=== PATIENT | female | born 1950 | race Caucasian/White ===

== ENCOUNTER 2019-02-18 17:09 | Emergency (ER) | payer MEDICARE ==
[2019-02-18 17:32] VITALS: BP 121/71
--- NOTE | 2019-02-18 17:48 | UC ---
Respiratory Complaint HPI - HPI Summary HPI Summary: started feeling sick 5 days ago with URI symps. cough and fatigue got worse for 2 days and now slowly getting better. Usint OTC cold and cough meds with some relief describes dry cough which is becoming looser over past day, fatigue and L ear discomfort (since yesterday). No fever.chills - History of Current Complaint Chief Complaint: UCRespiratory Stated Complaint: COUGH Time Seen by Provider: 02/18/19 17:29 Hx Obtained From: Patient Onset/Duration: Gradual Onset Timing: Constant Pain Intensity: 0 Character: Cough: Nonproductive Aggravating Factors: Nothing Alleviating Factors: OTC Meds Associated Signs And Symptoms: Positive: URI, Nasal Congestion. Negative: Dyspnea, Fever, Chills, Wheezing, Hemoptysis, Dizziness, Hoarseness - Allergies/Home Medications Allergies/Adverse Reactions: Allergies Allergy/AdvReac Type Severity Reaction Status Date / Time LILIES Allergy WATERY EYES Uncoded 02/18/19 17:34 Home Medications: Home Medications Guaifen/Dextromethorphan/PE [Tgt Cough/Cold Adult] 1 liq PO Q12HR PRN 02/18/19 [ History Confirmed 02/18/19] PMH/Surg Hx/FS Hx/Imm Hx Previously Healthy: Yes - Surgical History Surgical History: Yes Surgery Procedure, Year, and Place: ORAL SURGERY, OFFICE. CYSTOSCOPY- 2013 - Family History Known Family History: Positive: Non-Contributory - Social History Occupation: Retired Lives: With Family Alcohol Use: Rare Alcohol Amount: 1 PER MONTH Substance Use Type: None Smoking Status (MU): Never Smoked Tobacco Have You Smoked in the Last Year: No Review of Systems All Other Systems Reviewed And Are Negative: Yes Constitutional: Positive: Fatigue Skin: Positive: Negative Eyes: Positive: Negative ENT: Positive: Ear Ache, Sinus Congestion Respiratory: Positive: Cough Cardiovascular: Positive: Negative. Negative: Palpitations, Chest Pain Gastrointestinal: Positive: Negative Musculoskeletal: Positive: Negative Neurological: Positive: Negative. Negative: Headache Psychological: Positive: Negative Is Patient Immunocompromised?: No Physical Exam Triage Information Reviewed: Yes Appearance: Well-Appearing, No Pain Distress, Obese Vital Signs: Initial Vital Signs Temp 97.4 F 02/18/19 17:27 Pulse 82 02/18/19 17:27 Resp 18 05/27/19 17:27 BP 121/71 02/18/19 17:27 Pulse Ox 97 02/18/19 17:27 Vital Signs Reviewed: Yes Eyes: Positive: Conjunctiva Clear ENT: Positive: Pharynx normal, Nasal congestion, TMs normal. Negative: Nasal drainage, Sinus tenderness Neck exam: Normal Neck: Positive: No Lymphadenopathy Respiratory: Positive: Lungs clear, Other: - dry cough after deep inspiration w/ o evidence SOB Cardiovascular Exam: Normal Musculoskeletal Exam: Normal Neurological Exam: Normal Psychological Exam: Normal Skin Exam: Normal Skin: Negative: Rashes Respiratory Course/Dx - Differential Dx/Diagnosis Differential Diagnosis/HQI/PQRI: Bronchitis, Lower Resp Infection, Sinusitis Provider Diagnosis: Upper respiratory infection Discharge - Sign-Out/Discharge Documenting (check all that apply): Patient Departure All imaging exams completed and their final reports reviewed: No Studies - Discharge Plan Condition: Good Disposition: HOME Patient Education Materials: Upper Respiratory Infection (ED) Referrals: Thao He MD [Primary Care Provider] - 2 Days (if no better) Additional Instructions: Drink plenty of fluids and rest use over the counter DayQuil/NyQuil as directed for symptom relief take vitamin C before bed Report to ER if your symptoms worsen or you experience fever or shortness of breath - Billing Disposition and Condition Condition: GOOD Disposition: Home - Attestation Statements Provider Attestation: I was available for consult. This patient was seen by the ELENI. The patient was not presented to , seen by or examined by ky -Gopi Dueñas MD
== END 2019-02-18 18:00 | disposition home or self-care (01) ==
LOC: UCEAST 17:09
DX: J06.9 Acute upper respiratory infection, unspecified (principal)
CPT/HCPCS: 99201; G0463